=== PATIENT | female | born 1935 | race African-American/Black ===

== ENCOUNTER 2017-01-01 07:51 | Day surgery (SDC) | payer MEDICARE, BC ==
--- NOTE | ~2017-01-01 | EGD ---
EGD REPORT [facility] [address] [id number] NAME: QUINTIN PEDRO : [birth year] STATUS : REG [facility]#: [id number] AGE: 81 ADM/REG DATE : 01/01/17 MR#: [id number] REPORT SERV DATE: 01/01/17 DICTATED BY: ARMINDA ESPAÑA III DATE: 01/01/17 REPORT STATUS : Draft TRANSCRIBED BY: [facility] DATE: 01/01/17 [facility] Patient Name: Quintin Pedro Date of : 1935 Attending MD: ARMINDA ESPAÑA III, MD Procedure Date No Time: 01/01/2017 Procedure: Colonoscopy Indications: High risk colon cancer surveillance: Personal history of colonic polyps Referring MD: ELLYN TAYLOR Medicines: Propofol per Anesthesia Complications: No immediate complications. Procedure: Pre-Anesthesia Assessment: - ASA Grade Assessment: II - A patient with mild systemic disease. After I obtained informed consent, the scope was passed under direct vision. Throughout the procedure, the patient's blood pressure, pulse, and oxygen saturations were monitored continuously. The PCF [id number] was introduced through the anus and advanced to the terminal ileum. The colonoscopy was performed with ease. The patient tolerated the procedure well. The quality of the bowel preparation was good. Findings: Multiple diverticula were found in the sigmoid colon. Internal hemorrhoids were found during retroflexion. A sessile polyp was found in the ascending colon. The polyp was 6 mm in size. The polyp was removed with a cold snare. Resection and retrieval were complete. The terminal ileum appeared normal. Impression: - Diverticulosis in the sigmoid colon. - Internal hemorrhoids. - One 6 mm polyp in the ascending colon. Resected and retrieved. - The examined portion of the ileum was normal. Recommendation: - Patient has a contact number available for emergencies. The signs and symptoms of potential delayed complications were discussed with the patient. Return to normal activities tomorrow. Written discharge instructions were provided to the patient. - Discharge patient to home. - High fiber diet indefinitely. EGD REPORT [address] [address] NAME: QUINTIN PEDRO : 39 STATUS : REG [facility]#: [id number] AGE: 81 ADM/REG DATE : 01/01/17 MR#: [id number] REPORT SERV DATE: 01/01/17 DICTATED BY: ARMINDA ESPAÑA III DATE: 01/01/17 REPORT STATUS : Draft TRANSCRIBED BY: [place] DATE: 01/01/17 - Continue present medications. - Await pathology results. Procedure Code(s): --- Professional --- 68849, Colonoscopy, flexible, proximal to splenic flexure; with removal of tumor(s), polyp(s), or other lesion(s) by snare technique Diagnosis Code(s): --- Professional --- K64.8, Other hemorrhoids K57.30, Diverticulosis of large intestine without perforation or abscess without bleeding D12.2, Benign neoplasm of ascending colon Z86.010, Personal history of colonic polyps CPT copyright 2013 [employer]. All rights reserved. The codes documented in this report are preliminary and upon air brake operator review may be revised to meet current compliance requirements. ARMINDA ESPAÑA III, MD 01/01/2017 10:13 AM This report has been signed electronically. Number of Addenda: 0 Note Initiated On: 01/01/2017 9:47 AM Scope Withdrawal Time 0 hours 9 minutes 22 seconds [address] [id number]
[~2017-01-01 07:51] MED LIST: ASAB PO; ASABAYER PO; CO Q-10200 MG PO; CRESTOR10 PO; DID NOT BRING LIST; DIOVAN HCT320 MG/25 PO; DRAMAMINE25 MG PO; HCTZ25B PO; IBU600 PO; KLOR-CON 1010 MEQ PO; MULTI-VIT HP PO; PLAVIX PO; SKELAXIN8 PO
== END 2017-01-01 23:59 | disposition home health service (06) ==
LOC: DMU 07:51
PROVIDERS: Internal Medicine Gastroenterology
PROC: 0DBK8ZZ Excision of Ascending Colon, Via Natural or Artificial Opening Endoscopic (ICD-10-PCS; principal; 2017-01-01 10:00)
DX: D12.2 Benign neoplasm of ascending colon (principal); K57.30 Diverticulosis of large intestine without perforation or abscess without bleeding; K64.8 Other hemorrhoids; I10 Essential (primary) hypertension; E78.00 Pure hypercholesterolemia, unspecified; K21.9 Gastro-esophageal reflux disease without esophagitis; Z86.010 Personal history of colon polyps; Z90.710 Acquired absence of both cervix and uterus; Z98.890 Other specified postprocedural states; Z90.49 Acquired absence of other specified parts of digestive tract
CPT/HCPCS: 88305